=== PATIENT | male | born 1980 | race Hispanic/Latino ===

== ENCOUNTER 2020-10-12 05:27 | Emergency (ER) | payer SELFPAY ==
[2020-10-12] MEDS ORDERED: ADENOSINE 6 MG/2 ML INJ ONE ×3 (06:15→06:28)
[2020-10-12] MEDS ORDERED: ADENOSINE 6 MG/2 ML INJ IV ONE ×2 (06:35→06:36)
[2020-10-12] MEDS ORDERED: dilTIAZem 25 MG/5 ML INJ IV ONE (06:37)
--- NOTE | 2020-10-12 06:50 | XRay Report ---
CHEST 1 VIEW [id number] INDICATION / CLINICAL INFORMATION: svt COMPARISON: None available. FINDINGS: SUPPORT DEVICES: None HEART / MEDIASTINUM: No significant abnormality. LUNGS / PLEURA: No significant pulmonary or pleural abnormality. No pneumothorax. ADDITIONAL FINDINGS: No significant additional findings. IMPRESSION: No significant acute abnormality Signer Name: Willian Villalobos MD Signed: 10/12/2020 6:46 AM Workstation Name: [id number]
--- NOTE | 2020-10-12 07:15 | Emergency Department Report ---
ED General Adult HPI - General Chief complaint: Arrhythmia/Palpitations Stated complaint: HEART RACING Time Seen by Provider: 10/12/20 06:22 Source: patient Mode of arrival: Ambulatory Limitations: No Limitations - History of Present Illness Initial comments: This is a 39-year-old man with a history of presumed SVT. Sounds like he has been treated with adenosine in the past successfully. He has seen a human resource adviser in [facility] which apparently is his usual residence. He states he has had a cardiology work-up for previous episodes. He has had an echocardiogram results of which are unknown. He ordinarily is prescribed metoprolol but has not taken this for the past 3 days. He has been in his ordinary state of health without recent travel. He states for the last 2 days he has had intermittent episodes of tachycardia. He feels like he has to take a deep breath when this happens but is not frankly short of breath at rest. He feels a vague discomfort in his neck but no significant chest pain he states on my encounter. He said no episodes of sweating nor fever or chills. Additionally, he denies leg pain or swelling. -: days(s) Location: neck Radiation: non-radiation Quality: other (Mild discomfort) Consistency: intermittent Improves with: none Worsens with: other (Possibly associated with the tachycardia) Associated Symptoms: denies other symptoms, shortness of breath (As above indicated) - Related Data Allergies Allergy/AdvReac Type Severity Reaction Status Date / Time No Known Allergies Allergy Unverified 10/12/20 05:49 ED Review of Systems ROS: Stated complaint: HEART RACING Other details as noted in HPI Constitutional: denies: chills, fever Eyes: denies: eye pain, eye discharge, vision change ENT: denies: ear pain, throat pain Respiratory: see HPI. denies: cough, wheezing Cardiovascular: other (Heart racing). denies: chest pain, palpitations Endocrine: no symptoms reported Gastrointestinal: denies: abdominal pain, nausea, diarrhea Genitourinary: denies: urgency, dysuria Musculoskeletal: denies: back pain, joint swelling, arthralgia Skin: denies: rash, lesions Neurological: denies: headache, weakness, paresthesias Psychiatric: denies: anxiety, depression Hematological/Lymphatic: denies: easy bleeding, easy bruising ED Past Medical Hx - Past Medical History Previous Medical History?: Yes Hx Hypertension: Yes Additional medical history: SVT - Surgical History Past Surgical History?: No - Social History Smoking Status: Current Every Day Smoker Substance Use Type: Marijuana ED Physical Exam - General Limitations: Physical Limitation General appearance: alert, in no apparent distress, obese - Head Head exam: Present: atraumatic, normocephalic - Eye Eye exam: Present: normal appearance, PERRL, EOMI - ENT ENT exam: Present: mucous membranes moist - Neck Neck exam: Present: normal inspection - Respiratory Respiratory exam: Present: normal lung sounds bilaterally. Absent: respiratory distress - Cardiovascular Cardiovascular Exam: Present: regular rate, tachycardia. Absent: systolic murmur, diastolic murmur, rubs, gallop - GI/Abdominal GI/Abdominal exam: Present: soft, normal bowel sounds. Absent: distended, tenderness, guarding, rebound - Rectal Rectal exam: Present: deferred - Extremities Exam Extremities exam: Present: normal inspection - Back Exam Back exam: Present: normal inspection - Neurological Exam Neurological exam: Present: alert, oriented X3, CN II-XII intact. Absent: motor sensory deficit - Psychiatric Psychiatric exam: Present: normal affect, normal mood - Skin Skin exam: Present: warm, dry, intact, normal color. Absent: rash ED Course Vital Signs 10/12/20 10/12/20 10/12/20 05:46 07:09 07:15 Temperature 99.1 F Pulse Rate 213 H 99 H Respiratory 20 16 Rate Blood Pressure 153/83 Blood Pressure [Left] O2 Sat by Pulse 94 96 96 Oximetry 10/12/20 08:46 Temperature 97.6 F Pulse Rate 90 Respiratory 15 Rate Blood Pressure Blood Pressure 146/103 [Left] O2 Sat by Pulse 99 Oximetry - Reevaluation(s) Reevaluation #1: Patient was given 6 and 12 mg of adenosine without cardioversion. He was given 10 mg of diltiazem and this was successful in restoring the sinus mechanism. 10/12/20 07:15 Reevaluation #2: EKG showed normal sinus rhythm at 85 with essentially normal repolarization. 10/12/20 10:25 10/12/20 10:27 Patient remained asymptomatic after his cardioversion. He admitted that he needed a prescription for his metoprolol which he stated was 50 mg twice daily. Reevaluation #3: The patient did have a heart rate of as high as 220. I informed him that he may very well be a candidate for ablation. He states his human resource adviser spoke to him about that before. I am going to refer him to a local human resource adviser as the coverage in [facility] is very sparse. 10/12/20 10:27 ED Medical Decision Making - Lab Data Result diagrams: 10/12/20 07:02 10/12/20 07:02 Laboratory Results - last 24 hr 10/12/20 10/12/20 10/12/20 07:02 07:02 07:02 WBC 7.7 RBC 4.51 Hgb 14.8 Hct 41.9 MCV 93 MCH 33 H MCHC 35 H RDW 13.2 Plt Count 204 Lymph % (Auto) 6.3 L [place] % (Auto) 12.3 H Eos % (Auto) 1.4 Baso % (Auto) 0.3 Lymph # (Auto) 0.5 L [place] # (Auto) 0.9 H Eos # (Auto) 0.1 Baso # (Auto) 0.0 Seg Neutrophils % 79.7 H Seg Neutrophils # 6.2 Sodium 140 Potassium 3.4 L Chloride 103.3 Carbon Dioxide 27 Anion Gap 13 BUN 12 Creatinine 0.8 Estimated GFR > 60 BUN/Creatinine Ratio 15 Glucose 109 H Calcium 8.8 Magnesium 2.00 Total Bilirubin 0.60 Direct Bilirubin < 0.2 Indirect Bilirubin 0.4 AST 27 ALT 36 Alkaline Phosphatase 95 Total Creatine Kinase 99 CK-MB (CK-2) < 1.0 CK-MB (CK-2) Rel Index 1.0 Troponin T < 0.010 NT-Pro-B Natriuret Pep 100.4 Total Protein 7.1 Albumin 4.3 Albumin/Globulin Ratio 1.5 TSH 0.520 Free T4 1.12 - EKG Data -: EKG Interpreted by Me Rate: tachycardia - EKG Data Interpretation: other (SVT at about 190. Diffuse repolarization abnormality probably rate related.) - Radiology Data Radiology results: report reviewed, image reviewed IMPRESSION: No significant acute abnormality Critical care attestation.: If time is entered above; I have spent that time in minutes in the direct care of this critically ill patient, excluding procedure time. ED Disposition Clinical Impression: Supraventricular tachycardia Disposition: - TO HOME OR SELFCARE Is pt being admited?: No Does the pt Need Aspirin: No Condition: Stable Instructions: Supraventricular Tachycardia, Adult Additional Instructions: Return as needed any further problem. Rx metoprolol. See human resource adviser for further care. Referrals: ETTA NGUYEN [Other] - 3-5 Days ORIN MILTON MD [Staff Physician] - 2-3 Days Time of Disposition: 10:29
[2020-10-12 07:51] LABS: Basophils % (Auto) 0.3 % (0.0-1.8); Eosinophils # (Auto) 0.1 K/mm3 (0.0-0.4); Eosinophils % (Auto) 1.4 % (0.0-4.3); Hematocrit 41.9 % (35.5-45.6); Hemoglobin 14.8 gm/dl (11.8-15.2); Lymphocytes # (Auto) 0.5 K/mm3 (1.2-5.4); Lymphocytes % (Auto) 6.3 % (13.4-35.0); Mean Corpuscular HGB Conc 35 % (32-34); Mean Corpuscular Volume 93 fl (84-94); Monocytes # (Auto) 0.9 K/mm3 (0.0-0.8); Monocytes % (Auto) 12.3 % (0.0-7.3); Platelet Count 204 K/mm3 (140-440); Red Blood Count 4.51 M/mm3 (3.65-5.03); Red Cell Distribution Width 13.2 % (13.2-15.2)
[2020-10-12 07:56] LABS: Creatine Kinase MB < 1.0 ng/mL (0.0-4.0)
[2020-10-12 07:57] LABS: Alanine Aminotransferase 36 units/L (7-56); Albumin 4.3 g/dL (3.9-5); BUN/Creatinine Ratio 15; Blood Urea Nitrogen 12 mg/dL (9-20); Calcium 8.8 mg/dL (8.4-10.2); Hemolysis Index 8
[2020-10-12 08:02] LABS: Bilirubin,Direct < 0.2 mg/dL (0-0.2)
[2020-10-12] MEDS ORDERED: ACETAMINOPHEN 325 MG TAB PO ONE (08:07)
[2020-10-12 08:10] LABS: Free T4 (Free Thyroxine) 1.12 ng/dL (0.76-1.46)
[2020-10-12] MEDS ORDERED: POTASSIUM CHLORIDE ER 20 MEQ TAB PO ONE (09:26)
[2020-10-12 13:16] VITALS: BP 138/85
== END 2020-10-12 11:42 | disposition home or self-care (01) ==
LOC: ED 05:27
DX: I47.1 Supraventricular tachycardia (principal); I10 Essential (primary) hypertension; F17.200 Nicotine dependence, unspecified, uncomplicated
CPT/HCPCS: 36415; 71045; 80048; 80076; 82550; 82553; 83735; 83880; 84439; 84443; 84484; 85025; 93005; 96374; 96375; 99284; J0153